=== PATIENT | female | born 1970 | race Caucasian/White ===

== ENCOUNTER 2019-10-24 14:28 | Emergency (ER) | payer OTHER, SELFPAY ==
[2019-10-24 14:30] VITALS: BP 149/88; PULSE 74; RESP 16; TEMP 36.8; O2SAT 100; BMI 30.4
[2019-10-24 14:32] VITALS: BP 149/88; PULSE 74; RESP 16; TEMP 36.8; O2SAT 100
--- NOTE | 2019-10-24 14:55 | RAD_ITS ---
STUDY: X-RAY CHEST REASON FOR EXAM: Female, 49 years old. Pt c/o intromittent CP COUGH SINCE THURSDAY. STATES NAUSEA STARTED LAST NIGHT. DENIES FEVERS. TECHNIQUE: PA and lateral views of the chest. COMPARISON: Comparison is made with prior study dated August 10, 2016. FINDINGS: EKG electrodes are seen. The lungs are clear and expanded. Scattered calcified granulomas. There is no demonstrated pleural abnormality. Normal size heart. Normal mediastinum and heide. Normal visualized pulmonary arteries. Normal visualized aortic arch and descending thoracic aorta. There are mild degenerative changes of the visualized thoracic spine. Normal visualized ribs, clavicles, and shoulders. There is no demonstrated abnormality of the visualized soft tissue structures of the upper abdomen. RAD/Chest PA and Lateral IMPRESSION: No acute abnormality is seen. Electronically Signed: Homero Anguiano, at 15:37 EDT , Service support ,
--- NOTE | 2019-10-24 14:55 | EKG12_ITS ---
Test Reason : CP Blood Pressure : / mmHG Vent. Rate : 059 BPM Atrial Rate : 059 BPM P-R Int : 138 ms QRS Dur : 090 ms QT Int : 430 ms P-R-T Axes : 040 024 041 degrees QTc Int : 425 ms Sinus bradycardia Nonspecific ST abnormality Abnormal ECG Confirmed by LARA ROSA ([id number]), senior technical editor STEF VELASQUEZ ([id number] on 10/31/2019 2:54:45 PM Referred By: NARCISO/POP Confirmed By:LARA ROSA
--- NOTE | 2019-10-24 14:56 | ED.DCSUM_ITS ---
History of Present Illness Chief Complaint: Chest Pain Narrative: This patient is a 49-year-old female who presents with chest tightness and cough. This is been present for about 5 days. She had begun to develop some shortness of breath. No fevers. She contacted her primary care physician who advised her just to continue supportive care and monitor her symptoms. Since that time she has also developed some pain in her left shoulder blade. She also developed nausea. No vomiting. No diarrhea. She did have some congestion rhinorrhea and sore throat at the onset of illness however this has since resolved. She is treated for hypothyroidism. No diabetes hypertension or hyperlipidemia. She does have a history of lupus but is on no medications for this, no immunosuppressants. Past Medical History - Allergies and Home Meds Allergies/Adverse Reactions: Allergies minocycline Allergy (Verified 08/10/16 14:43) Unknown topiramate [From Topamax] Allergy (Verified 08/10/16 14:43) Unknown BACTRIA Allergy (Uncoded 08/10/16 14:43) Unknown Primary Care Physician: Gamal Augustine III, MD [Primary Care Provider] - Past Medical History: - - Hypothyroidism Surgical History: no surgical history Smoking Status: Never smoker - Family History Maternal Family History: Reports: Diabetes Paternal Family History: Reports: Hypertension Review of Systems All systems negative except as indicated General: Denies: Fever Eyes: Denies: Visual changes - bilaterally ENT: Denies: Bilateral ear pain Cardiovascular: Reports: Chest pain Respiratory: Reports: Dyspnea, Cough. Denies: Sputum Gastrointestinal: Reports: Nausea. Denies: Abdominal pain, Vomiting, Diarrhea Musculoskeletal: Reports: Back pain Skin: Denies: Rash Neurological: Denies: Headache Allergy: Denies: Uticaria Physical Exam Vital Signs/Narrative: Vital Signs Temp Pulse Resp BP Pulse Ox 10/24/19 14:32 98.2 F 74 16 149/88 H 100 10/24/19 14:30 98.2 F 74 16 149/88 H 100 Inital Vital Signs reviewed: Yes General: Well nourished Head: Normocephalic Eyes: EOMI ENT: Moist mucous membranes Neck: Supple Cardiovascular: Regular rate, Regular rhythm, No murmurs Respiratory: No distress, CTA bilaterally. Negative for: Rales, Rhonchi, Wheezing Abdomen: Soft Extremities: Nontender Skin: Normal color Neurological: Alert Psychological: Normal affect Diagnostic/Tx/Re-eval Impressions Chest X-Ray 10/24/19 14:55 IMPRESSION: No acute abnormality is seen. Electronically Signed: Homero Anguiano, at 15:37 EDT , Service support , 10/24/19 14:55 Chest PA and Lateral [RAD] Stat Laboratory Results 10/24/19 10/24/19 15:07 15:07 WBC 5.3 RBC 4.69 Hgb 13.3 Hct 41.1 MCV 87.6 MCH 28.4 MCHC 32.4 RDW Std Deviation 42.2 RDW Coeff of Mirian 13.3 Plt Count 300 MPV 10.5 Immature Gran % (Auto) 0.400 Neut % (Auto) 49.7 Lymph % (Auto) 34.5 Roberts % (Auto) 9.4 Eos % (Auto) 4.7 Baso % (Auto) 1.3 H Absolute Neuts (auto) 2.6 Absolute Lymphs (auto) 1.83 Nucleated RBC % 0 Sodium 140 Potassium 4.0 Chloride 109 H Carbon Dioxide 25.0 Anion Gap 6 BUN 13 Creatinine 0.72 Estim Creat Clear Calc 95.34 Est GFR (MDRD) Af Amer 110 Est GFR (MDRD) Non-Af 91 BUN/Creatinine Ratio 18.0 Glucose 111 H Calcium 8.9 - Medical Decision Making Laboratory studies as above unremarkable. Chest x-ray shows no acute process. EKG shows sinus bradycardia at a rate of 59 with no acute ischemic changes. Patient's clinical presentation is most consistent with a viral bronchitis. She has no focal infiltrate. I do not see an indication for antibiotics. At this time she does not meet criteria for testing for COVID-19 however she was advised on return precautions and quarantine precautions. Patient understands to return for new or worsening symptoms and was discharged home. ED Disposition - Plan for ED Patient: Disposition: Home or Assisted Living Diagnosis: Suspected COVID-19 virus infection, Bronchitis Instructions: Acute Bronchitis Referrals: Gamal Augustine III, MD [Primary Care Provider] -
[2019-10-24 15:22] LABS: Absolute Lymphocyte Count 1.83 X10^3/uL (0.83-4.51); Absolute Neutrophil Count 2.6 X10^3/uL (2.0-7.7); Basophil# 0.07 X10^3/uL; Basophil% 1.3 % (0-1); Eosinophil# 0.25 X10^3/uL; Eosinophils% 4.7 % (0-5); Hematocrit 41.1 % (37-47); Hemoglobin 13.3 g/dL (12.0-15.0); Lymphocyte # 1.83 X10^3/ul (4.0); Lymphocyte % 34.5 % (19-41); Mean Corp Hgb Conc 32.4 g/dL (32-36); Mean Corpuscular Hgb 28.4 pg (27.0-32.0); Mean Corpuscular Volume 87.6 fL (81-99); Mean Platelet Vol. 10.5 fl (6.2-12.0); Monocyte% 9.4 % (0-10); NRBC Flagged by Analyzer 0 % (0-5); Neutrophil # 2.63 X10^3/uL (2.7-7.7); Neutrophil % 49.7 % (47-70); Platelet Count 300 K/mm3 (150-450); RBC Distribution Width CV 13.3 % (11.6-14.6); RBC Distribution Width SD 42.2 fl (35.1-43.9); Red Blood Count 4.69 M/mm3 (4.2-5.4); White Blood Count 5.3 K/mm3 (4.4-11.0)
[2019-10-24 15:29] VITALS: BP 145/91; PULSE 63; RESP 18; O2SAT 99
[2019-10-24 15:32] VITALS: BP 145/91; PULSE 63; RESP 16; TEMP 36.9; O2SAT 99
[2019-10-24 16:00] VITALS: BP 127/88; PULSE 62; RESP 16; TEMP 36.9; O2SAT 100
[2019-10-24 16:04] LABS: Anion Gap 6 (5-15); BUN 13 mg/dL (7-18); Calcium,Total 8.9 mg/dL (8.5-10.1); Chloride 109 mmol/L (98-107); Creatinine, Serum 0.72 mg/dL (0.55-1.02); EST Glomerular Filtration Rate 91 mL/min (>60); Est Glom Filt Rate - Afr Amer 110 mL/min (>60); Estimated Creatinine Clearance 95.34 ml/min; Glucose 111 mg/dL (74-106); Sodium Level 140 mmol/L (136-145)
[2019-10-24 17:00] VITALS: BP 123/82; PULSE 65; RESP 18; O2SAT 100
== END 2019-10-24 17:42 | disposition home or self-care (01) ==
PROVIDERS: Emergency Provider Emergency Medicine; PCP Family Medicine
DX: J40 Bronchitis, not specified as acute or chronic (principal); E03.9 Hypothyroidism, unspecified
CPT/HCPCS: 71046; 80048; 85025; 93005; 99285; A4216

== ENCOUNTER 2021-08-29 08:56 | Outpatient (CLI) | payer OTHER, SELFPAY ==
--- NOTE | 2021-08-29 09:00 | EKG12_ITS ---
Test Reason : PREOP Blood Pressure : / mmHG Vent. Rate : 076 BPM Atrial Rate : 076 BPM P-R Int : 128 ms QRS Dur : 082 ms QT Int : 372 ms P-R-T Axes : 040 003 035 degrees QTc Int : 418 ms Normal sinus rhythm Normal ECG Confirmed by UTE BOOKER, LELAND ([id number]), staff editor NIKITA YOUSSEF ([id number]) on 08/29/2021 1:54:25 PM Referred By: Huy Stark Confirmed By:SHAINA UNGER MD
== END 2021-08-29 23:59 | disposition home or self-care (01) ==
LOC: PSN 08:59
PROVIDERS: PCP Internal Medicine; Referring Provider Orthopaedic Surgery; Visit Provider Orthopaedic Surgery
DX: Z01.810 Encounter for preprocedural cardiovascular examination (principal)
CPT/HCPCS: 87426; 87635; 93005; C9803; U0003; U0005

== ENCOUNTER 2021-09-11 12:51 | Outpatient (CLI) | payer OTHER, SELFPAY ==
--- NOTE | 2021-09-11 12:54 | VDLE_ITS ---
Reason For Study: Pain RIGHT GSV is normal. CFV is compressible, spontaneous, phasic, competent and demonstrates normal augmentation. FV is compressible, spontaneous, phasic, competent and demonstrates normal augmentation. POP V is compressible, spontaneous, phasic, competent and demonstrates normal augmentation. T/P Trunk is compressible. PTV is compressible. RT PerV is compressible. Procedure This is a venous duplex using B-mode, color flow and spectral Doppler. Exam performed in department. A preliminary report was called and/or faxed to [facility]. VL/Venous Duplex US, Unilateral Interpretation Summary Deep veins of the right lower extremity are patent and compressible segmentally . There is no evidence of right lower extremity deep vein thrombosis. Valvular competence kasi ears intact within the proximal deep venous system on the right . The right great saphenous vein a ppears patent and compressible segmentally. Ordering Physician: Huy Stark Referring Physician: Pedrito Mays M.D. Performed By: Roxanna Rosenthal RVT
== END 2021-09-11 23:59 | disposition home or self-care (01) ==
LOC: CVS 12:53
PROVIDERS: PCP Internal Medicine; Referring Provider Orthopaedic Surgery; Visit Provider Orthopaedic Surgery
DX: M79.661 Pain in right lower leg (principal)
CPT/HCPCS: 93971

== ENCOUNTER 2023-05-01 18:10 | Emergency (ER) | payer OTHER, SELFPAY ==
[2023-05-01 18:11] VITALS: BP 135/92; PULSE 75; RESP 16; TEMP 36.2; O2SAT 96; BMI 29.4
--- NOTE | 2023-05-01 18:36 | ED.VIS.DYS ---
HPI History of Present Illness Chief Complaint: Shortness of Breath Informant: patient Narrative Narrative: 52-year-old female presenting to the emergency room with cough and shortness of breath. Patient states for the past 3 weeks she has had a cough. Illness began about 3 weeks ago. She was seen at an urgent care and was placed on 5 days and Augmentin. Symptoms did not improve in fact she felt that the cough was worsening. She notes some yellow sputum. She was placed on a tapering dose of prednisone. She had a negative chest x-ray. She saw a physician curriculum assistant this week and was given albuterol inhaler and she is using her daughter spacer with that. She notes she missed all of work last week. No fevers. No known lung conditions. [facility] Medical History (Updated 05/01/23 @ 20:[address] Tian Manjarrez DO) Hypothyroidism Lupus erythematosus Migraine Home Medications levothyroxine 50 mcg tablet 50 mcg PO DAILY 08/10/16 [History Last Taken Unknown] doxycycline hyclate 100 mg capsule 100 mg PO BID #20 caps 05/01/23 [Rx Last Taken Unknown] Allergy/AdvReac Type Severity Reaction Status Date / Time sulfamethoxazole Allergy Mild Rash Verified 05/01/23 18:11 [From Bactrim] trimethoprim [From Bactrim] Allergy Mild Rash Verified 05/01/23 18:11 minocycline Allergy Unknown Verified 08/10/16 14:43 topiramate [From Topamax] Allergy Unknown Verified 08/10/16 14:43 Social History Smoking Status: Never smoker [facility] ED Constitutional Constitutional ED: Denies chills, fever(s) or weight loss Eyes Eyes: Reports other; Denies change in vision or diplopia ENT ENT ED: Reports other Details: Congestion/postnasal drip (clear) Dry throat ; Denies ear pain, rhinorrhea or sore throat Cardiovascular Cardiovascular: Denies chest pain, orthopnea, palpitations or racing heartbeat Respiratory/Chest Respiratory/Chest: Reports cough, dyspnea and sputum; Denies orthopnea Gastrointestinal Gastrointestinal: Denies abdominal pain, diarrhea, nausea or vomiting Genitourinary Genitourinary ED: Denies dysuria, hematuria or urinary frequency Musculoskeletal Musculoskeletal: Denies arthralgias or myalgias Integumentary Denies abscess or rash Neurologic Neurologic: Denies headache(s) or weakness Psychiatric Psychiatric: Denies anxiety, depression, suicidal ideation or suicidal thoughts Endocrine Endocrinology: Denies polydipsia, polyphagia or polyuria Allergic/Immunologic Allergic/Immunologic ED: Denies mouth swelling, tongue swelling or urticaria EXAM Physical Exam Narrative Exam Narrative: Frequent moist cough Const Vital Signs: 05/01/23 18:11 05/01/23 18:41 05/01/23 19:19 Temperature 97.2 F L Temperature Source Temporal Pulse Rate 75 77 Respiratory Rate 16 18 Respiratory Effort Normal Non-Labored Respiratory Depth Normal Respiratory Pattern Normal Normal Blood Pressure 135/92 H Blood Pressure Mean 106 Pulse Ox 96 Oxygen Delivery Method Room Air Positive well nourished and well developed General Appearance ED: well developed HEENT Reports normocephalic, head/scalp atraumatic and moist mucous membranes Eyes PERRL and EOMs intact bilaterally Neck no lymphadenopathy, supple and no JVD Resp normal respiratory effort and clear to auscultation bilaterally Cardio regular rate, regular rhythm and no murmurs GI normal to inspection, nondistended, normoactive bowel sounds and non-tender Palpation: soft Back/Spine no CVA tenderness and normal ROM Extremity normal to inspection General Extremety ED: Negative for edema General Extremity: Negative for edema Neuro oriented x3 and CN's II-XII intact bilaterally Sensorium / Orientation: alert Motor Exam: strength 5/5 throughout Psych mental status grossly normal Mood & Affect: Negative for depressed or tearful Skin no rashes or lesions noted and no wounds MDM MDM MDM Narrative Medical decision making narrative: My independent interpretation of the single view chest x-ray is no acute process. Patient received a DuoNeb which states it really did not change her symptoms. She took her last prednisone from a taper today. I do not feel strongly that she needs additional steroids. She did 5 days of Augmentin at the beginning of this. It has been 3 weeks and is reasonable to do a 10-day course of doxycycline. She does understand is most likely viral in nature and the antibiotic may not be helpful. She is instructed to humidify the room that she is sleeping on and to adjust the humidifier device on her heater at home. History & Record Review Discussion w/independent historian: Patient and Significant other Radiography Diagnostic Testing: Clinical Impression(s) from Imaging Studies Chest X-Ray 05/01/23 18:48 IMPRESSION: Normal x-ray examination of the chest. Electronically Signed: Fili Nix MD at 19:12 EDT , Discharge Plan Triage Chief Complaint: Shortness of Breath ED Provider: Tian Manjarrez Dx/Rx/DC Orders Clinical Impression: Bronchitis Instructions: ED Bronchitis with Wheezing (Adult) Prescriptions: New doxycycline hyclate 100 mg capsule 100 mg PO BID Qty: 20 0RF No Action levothyroxine 50 MCG tablet 50 mcg PO DAILY Primary Care Provider: Pedrito Mays Referrals: Pedrito Mays MD [Primary Care Provider] - As Needed Disposition Disposition: Home, Self Care Discharge Date/Time: 05/01/23 20:10
[2023-05-01 18:41] VITALS: PULSE 77; RESP 18
[2023-05-01] MEDS: Ipratropium/Albuterol Sulfate 3 ML AMPUL.NEB INHALATION (18:41)
--- NOTE | 2023-05-01 18:48 | RAD_ITS ---
STUDY: X-RAY CHEST REASON FOR EXAM: Female, 52 years old. cough TECHNIQUE: Single AP portable view of the chest. COMPARISON: 10/24/2019 FINDINGS: The lungs are clear and expanded. There is no demonstrated pleural abnormality. Normal size heart. Normal mediastinum and heide. Normal visualized pulmonary arteries. Normal visualized aortic arch and descending thoracic aorta. Normal visualized thoracic spine. Normal visualized ribs, clavicles, and shoulders. There is no demonstrated abnormality of the visualized soft tissue structures of the upper abdomen. RAD/Chest 1 View (Portable) IMPRESSION: Normal x-ray examination of the chest. Electronically Signed: Fili Nix MD at 19:12 EDT ,
== END 2023-05-01 20:10 | disposition home or self-care (01) ==
PROVIDERS: Emergency Provider Emergency Medicine; PCP Internal Medicine; Visit Provider Emergency Medicine
DX: J40 Bronchitis, not specified as acute or chronic (principal)
CPT/HCPCS: 71045; 94640; 99282